=== PATIENT | female | born 1985 | race Caucasian/White ===

== ENCOUNTER 2016-08-02 22:15 | Emergency (ER) | payer BC | END 2016-08-03 00:13 | disposition home or self-care (01) | LOC: D.ER 22:15 | DX: J06.9 Acute upper respiratory infection, unspecified (principal); J01.90 Acute sinusitis, unspecified ==

== ENCOUNTER 2017-06-14 10:13 | Emergency (ER) | payer MEDICAID ==
[2017-06-14 13:38] LABS: BASOPHILS 0.2 % (0-2); EOSINOPHILS 1.1 % (0-7); HEMATOCRIT 39.9 % (36.0-48.0); HEMOGLOBIN 13.7 g/dL (12-16); IMMATURE GRANULOCYTES 0.2 % (0-5); LYMPHOCYTES 11.4 % (15-50); MCH 32.8 pg (26.0-34.0); MCHC 34.3 g/dL (31.0-37.0); MCV 95.5 fL (80.0-100.0); MEAN PLATELET VOLUME 11.1 fL (7.4-10.4); MONOCYTES 17.6 % (2-11); NEUTROPHILS 69.5 % (40-80); PLATELET COUNT 134 10x3/uL (130-400); RBC 4.18 10x6/uL (4.00-5.40); RDW 12.1 % (11.5-14.5); WBC 4.6 10x3/uL (4.8-10.8)
[2017-06-14 13:52] LABS: ALBUMIN 4.4 g/dL (3.4-5.0); ALKALINE PHOSPHATASE 55 U/L (46-116); ALT (SGPT) 16 U/L (10-68); C-REACTIVE PROTEIN 1.4 mg/dL (0.0-0.9); CALC OSMOLALITY 275 mosm/kg (275-300); CALCIUM 8.6 mg/dL (8.5-10.1); CHLORIDE - SERUM 103 mmol/L (98-107); CREATININE - SERUM 0.8 mg/dL (0.6-1.3); GLUCOSE 91 mg/dL (74-106); HCG SERUM NEGATIVE (NEGATIVE); POTASSIUM - SERUM 3.9 mmol/L (3.5-5.1); PROTEIN - SERUM 7.6 g/dL (6.4-8.2); SODIUM 138 mmol/L (136-145); UREA NITROGEN 12 mg/dL (7-18); eGFR NON AFRICAN AMERICAN 89 mL/min (90-120)
[2017-06-14 14:57] LABS: ERYTHROCYTE SEDIMENTATION RATE 27 mm/hr (0-20)
[2017-06-14 18:03] LABS: APPEARANCE - CSF CLEAR; RBC - CSF 1 cmm (0-0)
[2017-06-14 18:06] LABS: GLUCOSE - CSF 55 MG/DL (40-75)
[2017-06-14 18:07] LABS: PROTEIN - CSF 24 MG/DL (12-60)
== END 2017-06-14 19:39 | disposition home or self-care (01) ==
LOC: D.ER 10:13
PROVIDERS: Family Medicine; Physician Assistant
DX: R50.9 Fever, unspecified (principal); R51 Headache

== ENCOUNTER 2017-06-17 10:45 | Emergency (ER) | payer MEDICAID | END 2017-06-17 12:33 | disposition home or self-care (01) | LOC: D.ER 10:45 | DX: J11.1 Influenza due to unidentified influenza virus with other respiratory manifestations (principal) ==

== ENCOUNTER 2018-04-15 20:23 | Inpatient (IN) | payer OTHER ==
[~2018-04-15] VITALS: Ht 170.2 cm; Wt 72.7 kg
--- NOTE | ~2018-04-15 | MORECARE ---
CASE MANAGEMENT DISCHARGE SUMMARY PATIENT: SHAWANDA BRADY UNIT: [id number] ADM DATE: 04/16/18 AGE: 32 : [birth year] SEX: F ROOM/BED: D.2228 AUTHOR: COLTON PADILLA PHYSICIAN: REFERRING PHYSICIAN: CHRIS BENAVIDES MD DATE OF SERVICE: 04/17/18 Discharge Plan Patient Name[facility]AWANDA BRAYD [facility] [facility] 1985 Planned Disposition: Home Anticipated Discharge Date: 04/16/18 Discharge Date: 04/16/2018 Expected LOS: 1 Initial Reviewer: [email or web address] Initial Review Date: 04/16/2018 Generated: 04/17/18 4:09 pm Comments DCP- Discharge Planning Updated by [email or web address]: Rama Lares on 04/16/18 1:[address] Received order for discharge. She is sleeping. Her family is in the room. Family states they will take her home on discharge. I informed them of discharge criteria and to call a nurse to help the first time she is out of bed. Denies discharge needs. Last DP export: 04/16/18 1:59 p Patient Name: SHAWANDA BRADY Page [id number] at 1510 All edits/amendments must be made on the electronic document DICTATION DATE: 04/17/18 1509 ELEVATOR OPERATOR: KAREN 04/17/18 1509 RPT#: [id number] DC DATE:04/16/18 STATUS: DIS IN [facility] [address] [place] [address] END OF REPORT
--- NOTE | ~2018-04-15 | OP ---
PATIENT NAME: SHAWANDA BRADY MEDICAL RECORD: [id number] :85 LOCATION:D.MS [id number] ADMISSION DATE:04/16/18 SURGEON: CHRIS BENAVIDES MD DATE OF OPERATION: 04/16/2018 PREOPERATIVE DIAGNOSES: 1. Pelvic mass. 2. Pelvic pain. POSTOPERATIVE DIAGNOSES: 1. Right hydrosalpinx. 2. Pelvic adhesions. 3. Ruptured hemorrhagic cyst. PROCEDURES: 1. Diagnostic laparoscopy. 2. Lysis of adhesions. 3. Bilateral salpingectomy. SURGEON: Chris Benavides MD LAUNDRY ROOM ATTENDANT: Zbigniew Campbell. ANESTHESIOLOGIST: Dr. Davis. ANESTHETICS: General anesthetic with endotracheal intubation. FINDINGS: Right proximal hydrosalpinx adhesed to the right ovary. There is a ruptured hemorrhagic cysts and blood in the cul-de-sac. The left ovary was unremarkable as well as the left tube. The distal segment of the right tube was unremarkable. PATHOLOGY: Portions of right and left tube. SPECIMEN DISPOSITION: Pathology. ESTIMATED BLOOD LOSS: Minimal. FLUIDS: 600 cc of lactated Ringer's. URINE OUTPUT: Quantity sufficient void prior to and approximately 150-200 cc of clear urine postprocedure. COMPLICATIONS: None. DRAINS: None. INDICATIONS: The patient is a 32-year-old female who presents to the Emergency Room with findings of a pelvic mass and lower pelvic pain and abdominal pain of increasing intensity over the last 72-96 hours. The patient has been made n.p.o. and is considered for diagnostic laparoscopy and any indicated procedure. DESCRIPTION OF PROCEDURE: After informed consent was assured, the patient was taken to the operating room where anesthetic is obtained. The patient is supine on the table and prepped and draped. An incision was made in the umbilicus to OPERATIVE REPORT [id number] SHAWANDA BRADY accommodate a 5-mm trocar, which was inserted without difficulty. The pneumoperitoneum has been developed. The patient is in steep Trendelenburg position and accessory ports were placed in the midline in the right lower quadrant. Due to technical issues, a single monitor was used over the patient's head for this procedure. The blunt probe was inserted into the pelvis and the bowel swept free. Adhesions were encountered across the lower segment from the left to the midline. Using a Bovie cautery on a monopolar setting of 20 philip, this tissue was mobilized. The cul-de-sac was visualized with no obvious evidence of endometriosis; however, there is blood in the cul-de-sac. This blood is irrigated and removed with laparoscopic instrument and a 30 cc syringe. Attention was directed to the right side where a hydrosalpinx was encountered. This was elevated with a [place] grasper from the midline and from the right port. Monopolar cautery was used to remove the hydrosalpinx from its attachments to the ovary. After the hydrosalpinx has been removed, the distal segment of the right tube is elevated and it is removed with Bovie cautery. Left tube was identified, elevated, and removed in similar fashion. Pneumoperitoneum was released and the accessory trocars were removed. The skin sites were reapproximated with a subcuticular stitch and Dermabond applied. The primary trocar was now removed and the skin reapproximated in like fashion. Dermabond was also applied here. Sponge, lap, needle counts were correct times 2. The patient was awakened and went to the recovery room in stable condition. TRANSINT:[id number] Voice Confirmation ID: [id number] DOCUMENT ID: [id number] CHRIS BENAVIDES MD CC: [id number] DICTATION DATE: 04/16/18 1347 HAND WRAPPER OPERATOR: 04/16/18 1510 ADM IN [facility] [address] [place] [address]
--- NOTE | ~2018-04-15 | MORECARE ---
CASE MANAGEMENT DISCHARGE SUMMARY PATIENT: SHAWANDA BRADY UNIT: [id number] ADM DATE: 04/16/18 AGE: 32 : 85 SEX: F ROOM/BED: D.2228 AUTHOR: COLTON PADILLA PHYSICIAN: REFERRING PHYSICIAN: CHRIS BENAVIDES MD DATE OF SERVICE: 04/16/18 Discharge Plan Patient Name: SHAWANDA BRADY Facility: [facility]:[place] : 1985 Planned Disposition: Home Anticipated Discharge Date: 04/16/18 Discharge Date: Expected LOS: 1 Initial Reviewer: [email or web address] Initial Review Date: 04/16/2018 Generated: 04/16/18 3:59 pm Comments DCP- Discharge Planning Updated by [email or web address]: Rama Lares on 04/16/18 1:[address] Received order for discharge. She is sleeping. Her family is in the room. Family states they will take her home on discharge. I informed them of discharge criteria and to call a nurse to help the first time she is out of bed. Denies discharge needs. Patient Name: SHAWANDA BRADY Page [phone] at 1452 All edits/amendments must be made on the electronic document DICTATION DATE: 04/16/181457 RESERVOIR ENGINEERING MANAGER: KAREN 04/16/181457 RPT#: [id number] DC DATE: STATUS: ADM IN [facility] [address] [id number] END OF REPORT
[2018-04-15 20:58] LABS: APPEARANCE CLEAR (CLEAR); BILIRUBIN NEGATIVE (NEGATIVE); COLOR YELLOW (YELLOW); GLUCOSE NEGATIVE (NEGATIVE); KETONE NEGATIVE (NEGATIVE); NITRITE NEGATIVE (NEGATIVE); PROTEIN NEGATIVE (NEGATIVE); SPECIFIC GRAVITY 1.015 (1.005-1.020); UROBILINOGEN NORMAL (NORMAL)
[2018-04-15 21:52] LABS: BASOPHILS 0.3 % (0-2); HEMATOCRIT 38.7 % (36.0-48.0); HEMOGLOBIN 13.4 g/dL (12-16); IMMATURE GRANULOCYTES 0.1 % (0-5); LYMPHOCYTES 24.3 % (15-50); MCH 33.3 pg (26.0-34.0); MCHC 34.6 g/dL (31.0-37.0); MCV 96.3 fL (80.0-100.0); MEAN PLATELET VOLUME 11.1 fL (7.4-10.4); MONOCYTES 12.1 % (2-11); NEUTROPHILS 61.2 % (40-80); PLATELET COUNT 153 10x3/uL (130-400); RBC 4.02 10x6/uL (4.00-5.40); RDW 12.2 % (11.5-14.5)
[2018-04-15 22:20] LABS: HCG SERUM NEGATIVE (NEGATIVE)
[2018-04-15 22:28] LABS: ALBUMIN 3.9 g/dL (3.4-5.0); ALKALINE PHOSPHATASE 50 U/L (46-116); ALT (SGPT) 13 U/L (10-68); BILIRUBIN - TOTAL 0.89 mg/dL (0.2-1.3); CALC OSMOLALITY 279 mosm/kg (275-300); CALCIUM 8.7 mg/dL (8.5-10.1); CHLORIDE - SERUM 105 mmol/L (98-107); CREATININE - SERUM 0.8 mg/dL (0.6-1.3); GLUCOSE 96 mg/dL (74-106); LIPASE 112 U/L (73-393); POTASSIUM - SERUM 3.3 mmol/L (3.5-5.1); PROTEIN - SERUM 7.2 g/dL (6.4-8.2); SODIUM 141 mmol/L (136-145); UREA NITROGEN 9 mg/dL (7-18); eGFR NON AFRICAN AMERICAN 88 mL/min (90-120)
[2018-04-16] VITALS (7 sets, daily range): BP systolic 113–143; BP diastolic 60–87; Ht 170.2 cm; Wt 72.7 kg
[2018-04-16] MEDS ORDERED: IBUPROFEN800 MG (15:06)
[2018-04-16] MEDS ORDERED: DEMEROL100 MG PO (15:08)
== END 2018-04-16 18:05 | disposition home or self-care (01) | DRG 745 ==
LOC: D.ER 20:23 → D.MS 04-16 01:06
PROVIDERS: Family Medicine; Obstetrics & Gynecology
PROC: 0UB74ZZ Excision of Bilateral Fallopian Tubes, Percutaneous Endoscopic Approach (ICD-10-PCS; 2018-04-16)
PROC: 0DNW4ZZ Release Peritoneum, Percutaneous Endoscopic Approach (ICD-10-PCS; principal; 2018-04-16 11:30)
DX: N70.11 Chronic salpingitis (principal); N73.6 Female pelvic peritoneal adhesions (postinfective); N83.201 Unspecified ovarian cyst, right side

== ENCOUNTER 2018-06-24 12:31 | Emergency (ER) | payer OTHER ==
[~2018-06-24] VITALS: Ht 170.2 cm; Wt 72.7 kg
[~2018-06-24 12:31] MED LIST: DEMEROL100 MG PO; IBUPROFEN800 MG
[2018-06-24 12:35] VITALS: Ht 170.2 cm; Wt 72.7 kg
[2018-06-24] MEDS ORDERED: MEDROL DOSE PACK4 MG PO (13:20)
[2018-06-24] MEDS ORDERED: CLEOCIN HCL300 MG PO (13:20)
[2018-06-24 14:01] VITALS: BP 126/85
== END 2018-06-24 14:00 | disposition home or self-care (01) ==
LOC: D.ER 12:31
DX: J02.0 Streptococcal pharyngitis (principal); M79.18 Myalgia, other site

== ENCOUNTER 2018-07-13 18:07 | Emergency (ER) | payer OTHER ==
[~2018-07-13] VITALS: Ht 170.2 cm; Wt 72.7 kg
[~2018-07-13 18:07] MED LIST changes: +CLEOCIN HCL300 MG PO; +MEDROL DOSE PACK4 MG PO
[2018-07-13 18:25] VITALS: Ht 170.2 cm; Wt 72.7 kg
[2018-07-13] MEDS ORDERED: ZPAK PO (20:09)
[2018-07-13 20:47] VITALS: BP 149/82
== END 2018-07-13 21:20 | disposition home or self-care (01) ==
LOC: D.ER 18:07
PROVIDERS: Family Medicine
DX: J02.0 Streptococcal pharyngitis (principal)

== ENCOUNTER 2019-07-18 13:13 | Emergency (ER) | payer MEDICAID ==
[~2019-07-18] VITALS: Ht 170.2 cm; Wt 72.7 kg
[~2019-07-18 13:13] MED LIST changes: +ZPAK PO
[2019-07-18 13:17] VITALS: Ht 170.2 cm; Wt 72.7 kg
[2019-07-18] MEDS ORDERED: ZPAK PO (13:37)
[2019-07-18 14:02] VITALS: BP 136/79
== END 2019-07-18 14:04 | disposition home or self-care (01) ==
LOC: D.ER 13:13
DX: J04.0 Acute laryngitis (principal); J32.9 Chronic sinusitis, unspecified